=== PATIENT | male | born 1965 | race Caucasian/White ===

== ENCOUNTER 2018-01-04 11:00 | Outpatient (CLI) | payer OTHER | END 2018-01-04 11:11 | disposition home or self-care (01) | LOC: SONOGRAMA 11:00 | DX: E04.1 Nontoxic single thyroid nodule (principal); R16.0 Hepatomegaly, not elsewhere classified ==

== ENCOUNTER 2023-02-08 12:30 | Outpatient (CLI) | payer OTHER | END 2023-02-08 12:44 | disposition home or self-care (01) | LOC: SONOGRAMA 12:30 | DX: N18.2 Chronic kidney disease, stage 2 (mild) (principal) ==